=== PATIENT | female | born 1995 | race Caucasian/White ===

== ENCOUNTER 2018-06-28 14:26 | Emergency (ER) | payer OTHER ==
[~2018-06-28] VITALS: Ht 162.6 cm; Wt 81.6 kg
[2018-06-28 14:29] VITALS: BP 157/103
== END 2018-06-28 14:55 | disposition home or self-care (01) ==
LOC: ED 14:26
DX: K08.89 Other specified disorders of teeth and supporting structures (principal); K00.6 Disturbances in tooth eruption; I10 Essential (primary) hypertension; Z88.0 Allergy status to penicillin